=== PATIENT | male | born 1955 | race Caucasian/White ===

== ENCOUNTER 2024-01-03 19:02 | Emergency (ER) | payer OTHER, SELFPAY ==
[2024-01-03 19:36] VITALS: BP 125/112
[2024-01-03] MEDS: NSS 1000 IV (20:12)
[2024-01-03] MEDS: ZOFRAN 4 MG IV (20:12)
[2024-01-03] MEDS: CATAPRES 0.100000000000000006 MG PO (20:12)
--- NOTE | 2024-01-03 20:19 | ED.GENMED ---
History of Present Illness
General
Chief Complaint: Overdose Unintentional
Source: patient, spouse and other (PDMP)
Exam Limitations: none
Time Seen by Provider: 01/03/24 19:37
Nursing documentation reviewed up to this point in time: agreed with
Travel History
Have you had any contact with someone who has COVID-19?: No
Do you have any symptoms of coronavirus? Fever > 100 degrees, chills, cough, shortness of breath, sore throat, loss of taste or smell, muscle aches, or headache?: No
History of Present Illness
History of Present Illness:
68-year-old male smoker chronic pain-patient maintained on oxycodone through pain management typically takes 3 or 4/day, having increased pains today took possibly 8-10 he tells me due to pain not trying to harm himself, says he was on the couch and
felt sleepy gave himself some nasal Narcan with the pharmacist given him proceeded to have nausea vomiting and profuse diarrhea
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
Past History
Past History
ED Past Medical History: Other (Chronic pain)
ED Past Surgical History: None
Social History
Tobacco: Smoker
Alcohol: None
Drug: None
Personal:
Living: with family
Employment: Employed
Review of Systems
Review of Systems
All Other Systems: Not applicable
Respiratory: Denies trouble breathing
Cardiac: Reports no symptoms
ABD/GI: Reports abdominal pain, nausea, vomiting and diarrhea
Endocrine: Reports no symptoms
Psychiatric: Denies depression, anxiety or suicidal
Phy Exam
Physical Exam
Physical Exam:
Physical Exam
General: no apparent distress, not acutely ill
Neck: supple. no meningeal signs. normal psoterior pharynx
Heart: s1/s2 regular rate and rhythm, no murmur. equal radial pulses.
Lungs: no acute respiratory distress. clear bilaterally
Abdomen: normal bowel sounds. not tender. no CVAT
Neuro: alert and oriented. no focal neurological deficits
Skin: no rash
Psychiatric: well kept. interactive and cooperative
Extremities: no edema. no calf tenderness. negative homans. good distal pulses
Course
Orders/Labs/Results
Orders:
Orders
01/03/24 19:17
ECG [Electrocardiogram (*1)] Urgent
Reason for Study: Shortness of Breath
EKG- Treatment ONCE
01/03/24 20:02
0.9% Sodium Chloride 1000 ml [Nss] 1,000 ml IV BOLUS
Clonidine [Catapres] 0.1 mg PO NOW STA
Ondansetron Injectable [Zofran] 4 mg IV NOW STA
01/03/24 20:08
Add On- LAB Urgent
Tests Added?: Salicylate, acetaminophen
01/03/24 20:13
Acetaminophen Urgent
Comment: ADD ON
Complete Blood Count/With Diff Urgent
Comprehensive Metabolic Panel Urgent
Salicylate Urgent
Comment: ADD ON
Abnormal Lab Results
01/03/24
20:13
MCH 31.3 H pg
(27.0-31.0)
MCHC 37.2 H g/dL
(33.0-37.0)
Plt Count 59 L 10^3/uL
(130-400)
MPV 11.8 H fL
(7.4-10.4)
Absolute Neuts (auto) 7.4 H 10^3/uL
(1.4-6.5)
Absolute Lymphs (auto) 1.1 L 10^3/uL
(1.2-3.4)
Neutrophils % 82.8 H %
(42.2-75.2)
Lymphocytes % 12.5 L %
(20.5-51.1)
Chloride 108 H mmol/L
(98-107)
Carbon Dioxide 18 L mmol/L
(22-30)
Glucose 112 H mg/dl
(70-99)
Total Protein 8.4 H g/dl
(6.3-8.2)
Salicylates < 1.0 L mg/dl
(2.0-20.0)
Acetaminophen < 10 L ug/ml
(10-30)
01/03/24 20:13
01/03/24 20:13
Vital Signs
Initial and Last Documented VS:
Initial Vital Signs
Temp Pulse Resp Pulse Ox
98.3 F 62 18 99
01/03/24 19:13 01/03/24 19:13 01/03/24 19:13 01/03/24 19:13
Last Documented Vital Signs
Temp Pulse Resp BP Pulse Ox
97.8 F 66 16 125/112 97
01/03/24 19:17 01/03/24 20:15 01/03/24 20:15 01/03/24 20:12 01/03/24 19:33
*Pulse Oximetry
Patient hypoxic: no
*Manager Non Profit Interpretation
Rate: normal
Interpretation: normal
Rhythm: sinus
*Critical Care Note
Total Time (30-74mins, 75-104mins- exclusive of procedures): Not Applicable
Update Note
Update Note:
9 PM labs noted including salicylate acetaminophen
Patient feeling better, counseled on only taking prescriptions as prescribed
ED Attending Note
-
Portions of this chart may have been created with voice recognition software.� Occasional wrong word or��sound alike� substitutions may have occurred due to the inherent limitations of voice recognition software.
Discharge Plan
Departure
Patient Disposition: Home (Routine Discharge)
Date of Disposition: 01/03/24
Time of Disposition: 21:06
Patient with high blood pressure during this ER visit?: Yes
Condition: Good
Discharge Problem:
Opioid overdose
Instructions: Opioid Overdose (DC), How to Give Naloxone, Accidental Overdose (DC)
Prescriptions:
New
ondansetron 4 mg tablet,disintegrating
4 mg PO Q8H PRN (Reason: nausea and vomiting) Qty: 10 0RF
No Action
nadolol 20 MG tablet
20 mg PO DAILY
pantoprazole 40 MG tablet,delayed release (DR/EC)
40 mg PO DAILY
oxycodone 5 MG tablet
10 mg PO Q4HPRN PRN (Reason: knee cap pain)
Referrals:
UNKNOWN - PT DOES,NOT KNOW [Family Provider] -
Activity Restrictions/Additional Instructions:
Take your medications as prescribed
Follow-up with your maintenance painter
Interventions
Interventions:
*Risk Screen - Suicide Last Done: 01/03/24 19:50
*General Assessment Last Done: 01/03/24 19:13
*Neglect/Abuse Screening Last Done: 01/03/24 19:50
ED- Fall Risk Assessment Last Done: 01/03/24 19:42
ED- Cardiac Assessment Last Done: 01/03/24 19:42
ED- Neurological Assessment Last Done: 01/03/24 19:42
ED-Psychological Assessment Last Done: 01/03/24 19:42
ED- Pulmonary Assessment Last Done: 01/03/24 19:42
Discharge Date and Time
Print Language: KOREAN
[2024-01-03 20:24] LABS: % Basophils 0.4 % (0-2); % Eosinophils 0.4 % (0-6); % Immature Granulocytes 0.3 % (0-0.5); % Lymphocytes 12.5 % (20.5-51.1); % Monocytes 3.6 % (1.7-9.3); % Neutrophils 82.8 % (42.2-75.2); Absolute Lymphocytes 1.1 10^3/uL (1.2-3.4); Absolute Monocytes 0.3 10^3/uL (0.1-0.6); Absolute Neutrophils 7.4 10^3/uL (1.4-6.5); Hematocrit 43.8 % (39.0-52.0); Hemoglobin 16.3 g/dL (13.0-18.0); Mean Corp Hgb Conc. 37.2 g/dL (33.0-37.0); Mean Corpuscular Hgb 31.3 pg (27.0-31.0); Mean Corpuscular Volume 84.1 fL (80.0-94.0); Nucleated Red Blood Cells % 0 % (-); Red Blood Cell Count 5.21 10^6/uL (4.70-6.10); Red Cell Dist. Width 12.7 % (11.5-14.5)
[2024-01-03 20:48] LABS: ALT (SGPT) 14 U/L (0-50); AST (SGOT) 30 U/L (17-59); Acetaminophen < 10 ug/ml (10-30); Albumin 4.9 g/dl (3.5-5.0); Alkaline Phosphatase 115 U/L (38-126); Blood Urea Nitrogen 18 mg/dl (9-20); Calcium 9.7 mg/dl (8.4-10.2); Carbon Dioxide 18 mmol/L (22-30); Chloride 108 mmol/L (98-107); Glucose 112 mg/dl (70-99); Potassium 3.6 mmol/L (3.5-5.1); Salicylate < 1.0 mg/dl (2.0-20.0); Sodium 139 mmol/L (135-145); Total Bilirubin 0.8 mg/dl (0.2-1.3); Total Protein 8.4 g/dl (6.3-8.2); eGFR > 60.00
[2024-01-03 20:54] LABS: Mean Platelet Volume 11.8 fL (7.4-10.4)
[2024-01-03 20:55] LABS: Platelet Count 59 10^3/uL (130-400)
[2024-01-03 21:07] VITALS: BP 152/74
== END 2024-01-03 21:25 | disposition home or self-care (01) ==
LOC: EMR 19:02
PROVIDERS: EMERGENCY PHYSICIAN Emergency Medicine
DX: T40.2X1A Poisoning by other opioids, accidental (unintentional), initial encounter (principal); R11.2 Nausea with vomiting, unspecified; R10.9 Unspecified abdominal pain; R06.02 Shortness of breath; R19.7 Diarrhea, unspecified; G89.29 Other chronic pain; F17.200 Nicotine dependence, unspecified, uncomplicated; R03.0 Elevated blood-pressure reading, without diagnosis of hypertension
CPT/HCPCS: 99284; 96374; 96361; 80053; 80143; 80179; 85025; 93005